=== PATIENT | male | born 1970 | race Native Hawaiian/Other Pacific Islander ===

== ENCOUNTER 2016-07-04 03:50 | Emergency (ER) | payer OTHER ==
[~2016-07-04] VITALS: Ht 180.3 cm; Wt 75.0 kg
[2016-07-04 03:54] VITALS: BP 113/71; PULSE 46; RESP 16; TEMP 97.6; O2SAT 99
[2016-07-04 04:22] VITALS: BP 110/63; PULSE 48; RESP 20; O2SAT 96
[2016-07-04 04:55] VITALS: RESP 16; O2SAT 99
[2016-07-04 05:13] LABS: AUTOMATED NEUTROPHIL # 1.8 TH/MM3 (1.8-7.7); BASOPHIL % 0.5 % (0.0-2.0); EOSINOPHIL # 0.1 TH/MM3 (0-0.4); EOSINOPHIL % 2.4 % (0.0-4.0); HEMATOCRIT 39.1 % (39.0-51.0); HEMO FLAGS DIFF FINAL; LYMPH % 19.2 % (9.0-44.0); LYMPHOCYTE # 0.5 TH/MM3 (1.0-4.8); MEAN CELL VOLUME 87.2 FL (80.0-100.0); MEAN CORPUSCULAR HGB CONC 34.4 % (32.0-36.0); MONO % 11.3 % (0.0-8.0); NEUT % 66.6 % (16.0-70.0); PLATELET COUNT 149 TH/MM3 (150-450); RED BLOOD COUNT 4.49 MIL/MM3 (4.50-5.90); WHITE BLOOD COUNT 2.7 TH/MM3 (4.0-11.0)
[2016-07-04 05:30] LABS: ANION GAP 8 MEQ/L (5-15); AST (GOT) 26 U/L (15-37); BICARBONATE 26.8 MEQ/L (21.0-32.0); BLOOD UREA NITROGEN 14 MG/DL (7-18); CHLORIDE 109 MEQ/L (98-107); GLOMERULAR FILTRATION RATE 65 ML/MIN (>89); MAGNESIUM 2.1 MG/DL (1.5-2.5); POTASSIUM 3.4 MEQ/L (3.5-5.1); SODIUM (NA) 144 MEQ/L (136-145)
--- NOTE | 2016-07-04 05:30 | PD ---
HPI Chief Complaint: Abdominal Pain Time Seen by Provider: 04:46 Travel History International Travel<30 days: No Contact w/Intl Traveler<30days: No Traveled to known affect area: No History of Present Illness HPI The patient is a 45 year old male who presents to the [facility] emergency department with a history of left lower quadrant abdominal pain that began this evening. He reports the pain has been coming and going. He reports that it is sharp in character present in the left lower quadrant of the abdomen. The pain was similar to prior kidney stones. The patient is visiting from [place], [place]. The patient denies having any dysuria, hematuria, urinary urgency or frequency. He reports that the pain was initially as 7-8 out of 10 in severity and now it is a 3 out of 10 in severity. He denies having any nausea, vomiting , or diarrhea. He last moved his bowels just prior to arrival. He denies having any blood in his stool or black or tarry stools. He denies ever having colonoscopy previously. His past medical history is complicated by having lymphoma diagnosed in 2015. He completed chemotherapy in December 2015. He reports that he had a biopsy done of his abdomen related to that which confirmed cells in an intra-abdominal mass after chemotherapy was completed. The patient denies any recent fevers, cough, congestion, neck pain, chest pain, shortness of breath, or neurologic symptoms. [facility] Past Medical History Narrative Medical The patient's past medical history is significant for lymphoma diagnosed and treated in 2015, history of shingles 3-4 months ago along the right side of his thorax, history of kidney stones with his last kidney stone a few years ago, history of gout. Cancer: Yes (lymphoma 05/2015) Diminished Hearing: No Gout: Yes Kidney Stones: Yes Tetanus Vaccination: > 5 Years Influenza Vaccination: No Past Surgical History Narrative Surgical The patient's past surgical history is significant for an [id number] placement in the right side of the chest, lithotripsy, kidney stone removal through cystoscopy, history of biopsy of a lymphoma related mass. Social History Alcohol Use: No Tobacco Use: No Substance Use: No Allergies-Medications (Allergen,Severity, Reaction): Coded Allergies: No Known Allergies (Unverified , 07/04/16) Reported Meds & Prescriptions Reported Meds & Active Scripts Active Flomax (Tamsulosin HCl) 0.4 Mg Cap 0.4 Mg PO HS Lortab (Hydrocodone-Acetaminophen) 7.5-325 Mg Tab 1 Tab PO Q6H PRN Ibuprofen 600 Mg Tab 600 Mg PO Q8HR PRN Review of Systems Except as stated in HPI: all other systems reviewed are Neg General / Constitutional: No: Fever Eyes: No: Visual changes HENT: No: Headaches Cardiovascular: No: Chest Pain or Discomfort Respiratory: No: Shortness of Breath Gastrointestinal: Positive: Abdominal Pain, No: Nausea, Vomiting, Diarrhea, Hematochezia, Changes in Bowel Habits, Indigestion, Loss of Appetite Genitourinary: No: Urgency, Frequency, Dysuria, Flank Pain Musculoskeletal: No: Pain Skin: No Rash Neurologic: No: Weakness Psychiatric: No: Depression Endocrine: No: Polydipsia Hematologic/Lymphatic: No: Easy Bruising Physical Exam Narrative General: The patient is a well-developed well-nourished male in no acute distress. Head and Neck exam: Head is normocephalic atraumatic. Eyes: EOMI, pupils are equal round and reactive to light. Nose: Midline septum with pink mucous membranes Mouth: Dentition unremarkable. Moist mucus membranes. Posterior oropharynx is not erythematous. No tonsillar hypertrophy. Uvula midline. Airway patent. Neck: No palpable lymphadenopathy. No nuchal rigidity. No thyromegaly. Cardiovascular: Regular rate and rhythm without murmurs, gallops, or rubs. On examination of the patient's right side of the chest the patient is noted to have an Infuse-a- Port in good repair. No evidence of overlying erythema or ecchymosis. Lungs: Clear to auscultation bilaterally. No wheezes, rhonchi, or rales. Abdomen: Soft, without tenderness to palpation in all 4 quadrants of the abdomen. No guarding, rebound, or rigidity. Normal bowel sounds are audible. No tenderness on palpation of McBurney's point. The patient reports that on palpation his pain is completely resolved at this time. Extremities: No clubbing, cyanosis, or edema. 2+ pulses in all 4 extremities. No calf tenderness on palpation. Back: No costovertebral angle tenderness to palpation. Neurologic Exam: Grossly nonfocal. Skin Exam: No rash noted. Intact skin that is warm and dry. Data Data Last Documented VS Vital Signs Date Time Temp Pulse Resp B/P Pulse Ox O2 Delivery O2 Flow Rate FiO2 07/04/16 04:55 16 99 Room Air 07/04/16 04:22 48 110/63 07/04/16 03:54 97.6 Orders Electrocardiogram (07/04/16 04:46) Complete Blood Count With Diff (07/04/16 04:46) Comprehensive Metabolic Panel (07/04/16 04:46) C-Reactive Protein (Crp) (07/04/16 04:46) Lipase (07/04/16 04:46) Urinalysis - C+S If Indicated (07/04/16 04:46) Magnesium (Mg) (07/04/16 04:46) Iv Access Insert/Monitor (07/04/16 04:46) Ecg Monitoring (07/04/16 04:46) Oximetry (07/04/16 04:46) Lactic Acid (07/04/16 04:46) Ct Abd/Pel W/O Iv Contrast (07/04/16 05:21) Sodium Chlor 0.9% 1000 Ml Inj (Ns 1000 M (07/04/16 06:15) Radiology Film Requests (07/04/16 ) Labs Laboratory Tests Test 07/04/16 07/04/16 07/04/16 04:15 04:57 05:30 White Blood Count 2.7 TH/MM3 Red Blood Count 4.49 MIL/MM3 Hemoglobin 13.5 GM/DL Hematocrit 39.1 % Mean Corpuscular Volume 87.2 FL Mean Corpuscular Hemoglobin 30.0 PG Mean Corpuscular Hemoglobin 34.4 % Concent Red Cell Distribution Width 15.0 % Platelet Count 149 TH/MM3 Mean Platelet Volume 8.2 FL Neutrophils (%) (Auto) 66.6 % Lymphocytes (%) (Auto) 19.2 % Monocytes (%) (Auto) 11.3 % Eosinophils (%) (Auto) 2.4 % Basophils (%) (Auto) 0.5 % Neutrophils # (Auto) 1.8 TH/MM3 Lymphocytes # (Auto) 0.5 TH/MM3 Monocytes # (Auto) 0.3 TH/MM3 Eosinophils # (Auto) 0.1 TH/MM3 Basophils # (Auto) 0.0 TH/MM3 CBC Comment DIFF FINAL Differential Comment Sodium Level 144 MEQ/L Potassium Level 3.4 MEQ/L Chloride Level 109 MEQ/L Carbon Dioxide Level 26.8 MEQ/L Anion Gap 8 MEQ/L Blood Urea Nitrogen 14 MG/DL Creatinine 1.20 MG/DL Estimat Glomerular Filtration 65 ML/MIN Rate Random Glucose 94 MG/DL Calcium Level 8.5 MG/DL Magnesium Level 2.1 MG/DL Total Bilirubin 0.5 MG/DL Aspartate Amino Transf 26 U/L (AST/SGOT) Alanine Aminotransferase 61 U/L (ALT/SGPT) Alkaline Phosphatase 76 U/L C-Reactive Protein LESS THAN 0.29 MG/DL Total Protein 6.1 GM/DL Albumin 3.5 GM/DL Lipase 145 U/L Lactic Acid Level 0.9 mmol/L Urine Color YELLOW Urine Turbidity CLEAR Urine pH 5.5 Urine Specific [place] 1.019 Urine Protein TRACE mg/dL Urine Glucose (UA) NEG mg/dL Urine Ketones NEG mg/dL Urine Occult Blood LARGE Urine Nitrite NEG Urine Bilirubin NEG Urine Urobilinogen LESS THAN 2.0 MG/DL Urine Leukocyte Esterase NEG Urine RBC /hpf Urine WBC 1 /hpf Urine Squamous Epithelial <1 /hpf Cells Urine Mucus FEW /lpf Microscopic Urinalysis Comment CULT NOT INDICATED MDM Medical Decision Making Medical Screen Exam Complete: Yes Emergency Medical Condition: Yes Medical Record Reviewed: Yes Interpretation(s) Last Impressions Abdomen/Pelvis CT 07/04/16 0521 Signed Impressions: Service Date/Time: Monday, July 04, 2016 05:33 - CONCLUSION: 1. Mild obstructive uropathy on the left secondary to a distal ureteral calculus measuring 4 mm. 2. There are nonobstructing bilateral renal calculi measuring 3-4 mm. 3. Moderate to severe hepatic steatosis. 4. Punctate gallstone versus calcification in the gallbladder wall. 5. Mixed attenuation lesion in the spleen measuring 3.6 x 2.9 cm and adjacent round mass measuring 3.0 x 3.1 cm. Neoplastic etiology cannot be excluded. There is also questionable lesions along the pancreatic tail. Contrasted MRI of the abdomen may be warranted. Hugo Sanford MD Differential Diagnosis Kidney stone, versus pyelonephritis, versus diverticulitis Narrative Course During the course of the patients emergency department visit, the patients history, examination, and differential diagnosis were reviewed with the patient. The patient had IV access obtained and blood work sent for analysis. The patient was placed on a manager monitoring with oximetry and blood pressure monitoring. The patient was provided normal saline 1 L IV fluid bolus. The patients laboratory studies were reviewed and remarkable for white count of 2.7, hemoglobin 13.5, platelets 149 with 11.3 monocytes, CMP is remarkable for potassium 3.4, chloride 109, GFR 65, C-reactive protein less than 0.29, lactic acid 0.9, lipase 145, urinalysis showed large occult blood innumerable rbc's, negative leukocyte Estrace Radiology studies were reviewed and remarkable for a CT scan of the abdomen and pelvis that showed mild obstructive uropathy on the left secondary to distal ureteral calculus measuring 4 mm. There are nonobstructing bilateral renal calculi measuring 3-4 mm, moderate to severe due to ptosis, punctate gallstones versus calcifications in the gallbladder wall, mixed attenuation lesion in the spleen and rounded mass near the spleen. These findings were discussed with the patient. The patient reports that he does have a history of having a mass associated with the spleen/near the spleen related to his history of lymphoma with recent treatment. He will receive a copy of the CD and a copy of the CT scan reading to review with his physician when he returns back to [place]. The patient was instructed regarding the importance of following up with the urologist. The patient was sent home with a prescription for pain medication, Flomax . The patient is resting comfortably and feels better, is alert and in no distress. The patients results and examination findings were discussed with the patient. The repeat examination is unremarkable and benign. The history, exam, diagnostic testing, and current condition do not suggest any significant pathology to warrant further testing, continued ED treatment, admission, or surgical evaluation at this point. The vital signs have been stable. The patient does not have uncontrollable pain, intractable vomiting, or other significant symptoms. The patient's condition is stable and appropriate for discharge. The patient will pursue further outpatient evaluation with a primary care physician or other designated or consulting physician as indicated in the discharge instructions. The patient expressed understanding and was agreeable with this plan. Diagnosis Primary Impression: Ureteral calculus, left Additional Impression: Abdominal mass Qualified Code: R19.02 - Left upper quadrant abdominal mass Referrals: Primary Care Physician Urologist Additional Instructions: A copy of the patient's CT scan of the abdomen and pelvis will be provided. The patient reports having a history of abdominal mass related to his diagnosis of coma. He instructed to follow-up with his physician when he returns back home to discuss the findings compared to his prior CT scan. Med/Other Pt SpecificInfo: Prescription(s) given Scripts Tamsulosin (Flomax)0.4 Mg Cap0.4 Mg PO HS #14 CAP Ref 0 Prov:Radha Oscar MD 07/04/16 Hydrocodone-Acetaminophen (Lortab)7.5-325 Mg Tab1 Tab PO Q6H PRN (PAIN) #12 TAB Ref 0 Prov:Radha Oscar MD 07/04/16 Ibuprofen 600 Mg [id number] Mg PO Q8HR PRN (PAIN SCALE 5 TO 10) #12 TAB Ref 0 Prov:Radha Oscar MD 07/04/16 Disposition: 01 DISCHARGE HOME Condition: Stable Radha Oscar MD Jul 04, 2016 05:29
[2016-07-04 05:34] LABS: ALKALINE PHOSPHATASE 76 U/L (45-117); ALT (GPT) 61 U/L (12-78); TOTAL BILIRUBIN ADULT 0.5 MG/DL (0.2-1.0)
[2016-07-04 06:01] LABS: BLOOD, URINE LARGE (NEG); COMMENT (UR) CULT NOT INDICATED; CULTURE IF INDICATED CULT NOT INDICATED; GLUCOSE,URINE NEG (NEG); KETONE, URINE NEG (NEG); MUCUS URINE FEW /lpf (OCC); NITRITE,URINE NEG (NEG); PH, URINE 5.5 (5.0-8.5); SQUAMOUS EPITHELIAL CELL URINE <1 /hpf (0-5); URINE COLOR YELLOW (YELLW/STRAW)
--- NOTE | 2016-07-04 06:11 | RADRPT ---
EXAM DATE/TIME: 07/04/2016 05:33 [facility] COMPARISON: No previous studies available for comparison. INDICATIONS : Left flank pain. ORAL CONTRAST: No oral contrast ingested. RADIATION DOSE: 8.54 CTDIvol (mGy) MEDICAL HISTORY : Renal calculi. lymphoma, gout SURGICAL HISTORY : None. ENCOUNTER: Initial ACUITY: 1 day PAIN SCALE: 9/10 LOCATION: Left flank TECHNIQUE: Volumetric scanning of the abdomen and pelvis was performed. Using automated exposure control and ad justment of the mA and/or kV according to patient size, radiation dose was kept as low as reasonably achievable to obtain optimal diagnostic quality images. FINDINGS: LOWER LUNGS: The visualized lower lungs are clear. LIVER: Decreased attenuation without lesion. There is no dilation of the biliary tree. Punctate gallstone v ersus calcification in gallbladder wall. SPLEEN: There is a mixed attenuation lesion in the spleen measuring 3.6 x 2.9 cm. There is a trace of fluid a djacent to the spleen. There is also a rounded lesion adjacent to the spleen measuring 3.0 x 3.1 cm. PANCREAS: Within normal limits, with the exception of some slight irregularity along the pancreatic tail howeve r lack of intravenous contrast limits evaluation. KIDNEYS: Normal in size and shape. There is no mass in either kidney. There are 2 nonobstructing right-sided renal calculi measuring 3-4 mm in size. There is one nonobstructing calculus left mid kidney measurin g 3-4 mm. There is a distal left ureteral calculus causing slight hydroureter and minimal left-sided hydronephrosis. This measures 4 mm. ADRENAL GLANDS: Within normal limits. VASCULAR: There is no aortic aneurysm. BOWEL/MESENTERY: The stomach, small bowel, and colon demonstrate no acute abnormality. There is no free intraperitone al air or fluid. ABDOMINAL WALL: Within normal limits. RETROPERITONEUM: There is no lymphadenopathy. BLADDER: No wall thickening or mass. REPRODUCTIVE: Within normal limits. INGUINAL: There is no lymphadenopathy or hernia. MUSCULOSKELETAL: Within normal limits for patient age. CONCLUSION: 1. Mild obstructive uropathy on the left secondary to a distal ureteral calculus measuring 4 mm. 2. There are nonobstructing bilateral renal calculi measuring 3-4 mm. 3. Moderate to severe hepatic steatosis. 4. Punctate gallstone versus calcification in the gallbladder wall. 5. Mixed attenuation lesion in the spleen measuring 3.6 x 2.9 cm and adjacent round mass measuring 3. 0 x 3.1 cm. Neoplastic etiology cannot be excluded. There is also questionable lesions along the panc reatic tail. Contrasted MRI of the abdomen may be warranted. Hugo Sanford MD on July 04, 2016 at 5:58 Board Certified Radiologist. This report was verified electronically.
[2016-07-04] MEDS ORDERED: SODIUM CHLOR 0.9% 1000 ML INJ 1,000 ML IV ONE (06:15)
[2016-07-04] MEDS ORDERED: IBUP-232 PO (07:13)
[2016-07-04] MEDS ORDERED: TAMS5CAP PO (07:13)
[2016-07-04] MEDS ORDERED: HYDR-3534 PO (07:13)
--- NOTE | 2016-07-04 11:33 | EKG ---
Date Performed: 07/04/2016 Time Performed: 04:10:36 PTAGE: 45 years EKG: SINUS BRADYCARDIA POSSIBLE RIGHT VENTRICULAR CONDUCTION DELAY BORDERLINE ECG NO PREVIOUS TRACING DOCTOR: Guille Redman Interpretating Date/Time 07/04/2016 11:31:27
== END 2016-07-04 11:09 | disposition home or self-care (01) ==
LOC: NEPC 03:50
DX: N20.1 Calculus of ureter (principal); R19.02 Left upper quadrant abdominal swelling, mass and lump; R94.31 Abnormal electrocardiogram [ECG] [EKG]
CPT/HCPCS: 74176; 80053; 81001; 83605; 83690; 83735; 85025; 86140; 93005; 99284; J7030